=== PATIENT | female | born 1935 | race Hispanic/Latino ===

== ENCOUNTER 2017-09-01 08:23 | Emergency (ER) | payer MEDICARE, MEDICAID ==
[2017-09-01 10:59] LABS: #Basophils 0.1 thou/uL (0.0-0.2); #Eosinphils 0.1 thou/uL (0.0-0.7); #Lymphocytes 1.2 thou/uL (1.20-3.40); #Monocytes 0.4 thou/uL (0.11-0.59); #Neutrophils 3.5 thou/uL (1.40-6.50); %Basophils 1.4 % (0.0-1.0); %Lymphocytes 23.6 % (21.0-51.0); Hemoglobin 13.6 g/dL (12.0-16.0); Mean Corpuscular Volume 90.8 fl (81.0-99.0); Mean Platelet Volume 7.7 fL (7.4-10.4); Platelet Count 184 thou/uL (130-400); RBC Distribution Width 11.8 % (11.5-14.5); Red Blood Cell (RBC) Count 4.53 mill/uL (4.20-5.40); White Blood Cell (WBC) Count 5.2 thou/uL (4.8-10.8)
[2017-09-01 11:03] LABS: PTT 30.2 SEC (22.9-36.1); Prothrombin Time 13.3 SEC (12.0-14.7)
[2017-09-01 11:15] LABS: ALT (SGPT) 10 U/L (8-55); AST (SGOT) 17 U/L (5-34); Albumin 3.8 g/dL (3.4-4.8); Alkaline Phosphatase 73 U/L (40-150); Anion Gap 8 mmol/L (10-20); BUN (Urea Nitrogen) 15 mg/dL (9.8-20.1); Bilirubin, Total 0.4 mg/dL (0.2-1.2); Calc. Creatinine Clearance 0 mL/min (70-130); Calcium 10.2 mg/dL (7.8-10.44); Carbon Dioxide 29 mmol/L (23-31); Chloride 107 mmol/L (98-107); Estimated GFR-MDRD 71; Globulin 2.6 g/dL (2.4-3.5); Glucose 96 mg/dL (83-110); Potassium 4.3 mmol/L (3.5-5.1); Protein, Total 6.4 g/dL (6.0-8.3); Sodium 140 mmol/L (136-145)
[2017-09-01] MEDS ORDERED: Losartan 25 MG TAB PO SCH (12:00)
== END 2017-09-01 12:21 | disposition home or self-care (01) ==
LOC: ERS 08:23
DX: K05.10 Chronic gingivitis, plaque induced (principal); E78.5 Hyperlipidemia, unspecified; I10 Essential (primary) hypertension; K21.9 Gastro-esophageal reflux disease without esophagitis; F41.9 Anxiety disorder, unspecified; Z87.442 Personal history of urinary calculi
CPT/HCPCS: 36415; 80053; 85025; 85610; 85730; 99283

== ENCOUNTER 2018-04-15 13:59 | Observation (INO) | payer MEDICARE, MEDICAID ==
[~2018-04-15 13:59] MED LIST: ISOVUE-370 76%-LOCM 1 ML ONE
[2018-04-15 14:54] LABS: #Monocytes 1.1 thou/uL (0.11-0.59); #Neutrophils 12.9 thou/uL (1.40-6.50); %Basophils 0.2 % (0.0-1.0); %Eosinophils 0.3 % (0.0-10.0); %Lymphocytes 6.6 % (21.0-51.0); %Monocytes 7.2 % (0.0-10.0); %Neutrophils 85.8 % (42.0-75.0); Hemoglobin 13.6 g/dL (12.0-16.0); Mean Corpuscular Hemoglobin 28.4 pg (27.0-31.0); Mean Corpuscular Volume 88.8 fL (78.0-98.0); Mean Platelet Volume 7.6 fL (7.4-10.4); Platelet Count 250 thou/uL (130-400); RBC Distribution Width 11.7 % (11.5-14.5); Red Blood Cell (RBC) Count 4.78 mill/uL (4.20-5.40); White Blood Cell (WBC) Count 15.1 thou/uL (4.8-10.8)
[2018-04-15 14:57] LABS: Bilirubin Negative (Negative); Blood, Urine Moderate (Negative); Glucose, Urine (Dipstick) Negative (Negative); Leukocyte Negative (Negative); Nitrite Negative (Negative); Protein, Urine (Dipstick) Negative (Neg-Trace); Urobilinogen 0.2 mg/dL (0.2-1.0)
[2018-04-15 14:59] LABS: Clarity Clear (Clear)
[2018-04-15 15:03] LABS: Bacteria/HPF None Seen HPF (None Seen); Hyaline Casts/LPF 0-3 HYALINE CAST LPF (0-3 Hyaline); Pathc Cast-AUWi Flag 0.29 (0-2.49)
--- NOTE | 2018-04-15 15:06 | RAD ---
PORTABLE CHEST: Date: 04/15/18 HISTORY: Respiratory distress. COMPARISON: 09/20/13 study. FINDINGS: Heart size is slightly enlarged. There are atherosclerotic changes of the aorta. Calcific area just a simba the aortic arch is again demonstrated, which was noted on previous CT to be related to thyroid g land calcification. The lungs show chronic change. There are some slightly increased interstitial mar kings of the left costophrenic angle, which is suggestive of some atelectasis. IMPRESSION: Minimal cardiomegaly with chronic appearing lung changes. Interstitial changes along the left heart b order are subtly more prominent than the prior exam. Some of this may just be technique related, but could indicate some subsegmental atelectasis. POS: PORSHA
[2018-04-15 15:20] LABS: ALT (SGPT) 15 U/L (8-55); AST (SGOT) 20 U/L (5-34); Alkaline Phosphatase 64 U/L (40-150); Anion Gap 13 mmol/L (10-20); BUN (Urea Nitrogen) 10 mg/dL (9.8-20.1); Bilirubin, Total 0.8 mg/dL (0.2-1.2); CK (CPK) 63 U/L (29-168); Calc. Creatinine Clearance 0 mL/min (70-130); Calcium 10.3 mg/dL (7.8-10.44); Carbon Dioxide 21 mmol/L (23-31); Chloride 104 mmol/L (98-107); Estimated GFR-MDRD 62; Globulin 3.5 g/dL (2.4-3.5); Glucose 119 mg/dL (83-110); Potassium 3.5 mmol/L (3.5-5.1); Protein, Total 7.5 g/dL (6.0-8.3); Sodium 134 mmol/L (136-145)
[2018-04-15] MEDS ORDERED: cefTRIAXone\\ROCEPHIN 1 GM VIAL ONE (15:37)
[2018-04-15 15:40] LABS: Troponin I Less than 0.010 ng/mL (< 0.028)
[2018-04-15] MEDS ORDERED: Acetaminophen 500 MG TAB ONE (17:06)
[2018-04-15] MEDS ORDERED: Ondansetron ODT 4 MG TAB SL PRN (18:21)
[2018-04-15] MEDS ORDERED: Ondansetron HCl/PF 4 MG/2 ML Vial IVP PRN ×2 (18:21→20:07)
[2018-04-15 18:36] VITALS: BMI 23.6
[2018-04-15 18:49] LABS: Troponin I Less than 0.010 ng/mL (< 0.028)
--- NOTE | 2018-04-15 18:59 | HP ---
DATE OF ADMISSION: 04/15/2018 TIME OF SERVICE: 1800. PRIMARY CARE PHYSICIAN: Dr. Flynn at [facility]. CHIEF COMPLAINT: Hypoxia, fever, cough. HISTORY OF PRESENT ILLNESS: Ms. Givens is an 81-year-old female, Liberian speaking only, translation is provided through her family who presented to an outside Urgent Care Clinic at [facility] today. She has had a 2-week history of cold-like symptoms that started with her daughters and spread to her. She has had increasing fever and cough and today a fever to 101, so she prompted to go to the [facility] for evaluation. She is noted to have a temperature of 101.0 there, she was tachycardic and tachypneic. She was repor tedly 90% on room air on arrival there, was given a breathing treatment and sent to us. On arrival to the emergency department, she was reportedly 88% on room air. She had a chest x-ray th at was significant for some scarring along the left sternal border. She had a flu screen that was ne gative. White blood cell count was 15,000 with a normal differential and she is tachycardic with a s inus tachycardia at 115 with a temperature of 100.1. We were subsequently called for admission. She was given only 500 mL bolus which is approximately 10 mL per kilo and received a gram of Rocephin. On arrival to the floor, she is feeling okay. She denies any chest pain, nausea, vomiting, diarrhea, constipation. No hemoptysis. No colored sputum. She is having a cough productive of some clear ph legm. PAST MEDICAL HISTORY: 1. Hypertension. 2. DVT remotely. 3. Gastroesophageal reflux disease. 4. Osteoporosis. 5. Peripheral vascular disease, primarily venous insufficiency. 6. Hyperlipidemia. PAST SURGICAL HISTORY: Include; 1. Cholecystectomy 10-12 years ago. 2. Bilateral leg vein surgeries over the last several years. HOME MEDICATIONS: 1. Ambien 5 mg p.o. at bedtime. 2. Xarelto 50 mg p.o. b.i.d. 3. Atelvia 35 mg p.o. weekly. 4. Nifedipine 60 mg daily. 5. Nexium 40 mg daily. ALLERGIES: MORPHINE causes her to have sharp abdominal pains. FAMILY HISTORY: Significant for mother with coronary disease, but not premature. SOCIAL HISTORY: Negative for habits x3. She lives with family. REVIEW OF SYSTEMS: All systems reviewed and negative except as per HPI. PHYSICAL EXAMINATION: VITAL SIGNS: Temperature on arrival to the ER was 100.1, pulse 115, blood pressure 138/88, respirato ry rate 20, satting 80% on room air. She is currently 94%-96% on 2 liters. GENERAL: She is awake. She is alert. She is oriented x3. She is a well-developed, well-nourished female, appears to be in no acute distress. HEENT: Normocephalic, atraumatic. Pupils equal, round, reactive to light bilaterally. Mucous membr anes are moist. She had no visible lesion or thrush. Nasal cannula is in place. NECK: Supple. She has no lymphadenopathy, JVD, or thyromegaly. Good range of motion. Normal carot id upstrokes without bruits. LUNGS: Symmetrical air movement bilaterally. She has some expiratory high pitched wheezing present in the posterior right base. She has some crackles present in the right posterior lung field. Left side does sound clear. CARDIOVASCULAR: She is normal S1 and S2. She is slightly tachycardic in the 90s, but has no audible murmurs. ABDOMEN: Soft, is nontender, nondistended, no masses, no organomegaly. She had no rebound, rigidity or guarding. EXTREMITIES: Show no signs of clubbing, no edema. SKIN: Warm, moist, and well perfused. She has no rash, no lesions. MUSCULOSKELETAL: Normal to inspection. Large joints appear normal. There is no evidence of inflamm ation or palpable effusions. NEUROLOGIC: Cranial nerves II-XII are grossly intact. She has 5/5 strength in all 4 extremities, sh e has normal speech pattern, she has no focal deficits. LABORATORY DATA: Sodium 134, potassium 2.5, chloride 104, bicarb 21, BUN 10, creatinine 0.7, glucose 119, calcium 10.3. Liver function completely within normal limits. CBC showed a white count of 15.1, 85% percent granul ocytes, but no bands, no left shift, hemoglobin 13.6, hematocrit 42.4, platelet count is 250,000. BN P elevated at 115.3. CK-MB normal at 1.0, troponin I is undetectable less than 0.010. Lactic acid w as 1.8. Chest x-ray showed some atelectasis at the bases and some scarring at the left heart border. ASSESSMENT AND PLAN: 1. Possible community-acquired pneumonia. She has crackles present in the right base and some expir atory wheezes. She got Rocephin in the ER. We will continue on doxycycline also. We will likely tr ansition to oral Levaquin in the morning. 2. Sepsis. She has elevated temperature, elevated heart rate, elevated white blood cell count, pres umed bacterial infection and is tachypneic. She does meet sepsis criteria. She was not adequately f luid resuscitated. We will give another liter to give a total of 30 mL per kilo bolus and will subse quently continue at 75 mL an hour normal saline. 3. Recent viral upper respiratory infection by history. She had a negative flu panel in the emergen cy department. 4. Hypertension, essential. We will continue her nifedipine. 5. Gastroesophageal reflux disease. Continue Nexium. 6. History of deep venous thrombosis on Xarelto, which we will continue. 7. History of osteoporosis. She is on Atelvia which we will hold at present. 8. History of peripheral vascular disease. 9. History of hyperlipidemia. The patient will be in observation status overnight. We will reassess in the morning.
[2018-04-15] MEDS ORDERED: Acetaminophen 325 MG TAB PO PRN (20:07)
[2018-04-15] MEDS ORDERED: Acetaminophen 650 MG Suppository PR PRN (20:07)
[2018-04-15] MEDS ORDERED: Ondansetron ODT 4 MG TAB PO PRN (20:07)
--- NOTE | 2018-04-15 20:12 | CT ---
CT ANGIO OF CHEST PERFORMED WITH INTRAVENOUS CONTRAST ENHANCEMENT WITH 3D RECONSTRUCTIONS: 04/15/18 HISTORY: Hypoxia, dyspnea, productive cough. There is a 6 mm left upper lobe pulmonary nodule incidentally noted. This should be worked up based o n risk factors. There is a calcified granuloma in the in the left base. There are chronic lung change s seen. there is atelectatic changes in the right lower lobe and more prominent atelectasis or some early developing infiltrate of the left lower lobe. There is no significant periaortic, mediastinal o r hilar adenopathy. The thoracic aorta is normal in caliber. There is good pulmonary artery opacification obtained in two of the more subsegmental branches. I do not see any evidence for pulmonary embolus. Tiny left pleural effusion is seen. Hypodensity within the liver is compatible with a cyst. Right and left adrenal glands are normal. Other hypodensities within the liver also appear to represe nt cysts. IMPRESSION: 1. No CT evidence for pulmonary embolus. 2. Bibasilar parenchymal lung changes probably related to atelectasis, although changes in the l eft base are more confluent and could represent early infiltrate. 3. Hepatic cyst. POS: Scooby
[2018-04-15] MEDS: Rivaroxaban 15 MG TAB PO SCH (20:27)
[2018-04-15] MEDS: Doxycycline 100 MG CAP PO SCH (20:27)
[2018-04-15] MEDS ORDERED: Zolpidem Tartrate 5 MG TAB PO SCH (21:00)
[2018-04-16 06:05] LABS: Hemoglobin 12.6 g/dL (12.0-16.0); Platelet Count 221 thou/uL (130-400)
[2018-04-16] MEDS: Rivaroxaban 15 MG TAB PO SCH (08:26)
[2018-04-16] MEDS: Doxycycline 100 MG CAP PO SCH (08:26)
[2018-04-16] MEDS ORDERED: NIFEdipine XL 60 MG TAB PO SCH (09:00)
[2018-04-16 10:07] LABS: #Basophils 0.1 thou/uL (0.0-0.2); #Eosinphils 0.1 thou/uL (0.0-0.7); #Lymphocytes 1.1 thou/uL (1.20-3.40); #Monocytes 0.8 thou/uL (0.11-0.59); #Neutrophils 9.9 thou/uL (1.40-6.50); %Basophils 0.4 % (0.0-1.0); %Lymphocytes 9.2 % (21.0-51.0); %Monocytes 6.3 % (0.0-10.0); %Neutrophils 83.1 % (42.0-75.0); Hemoglobin 12.6 g/dL (12.0-16.0); Mean Corpuscular HGB CONC 32.1 g/dL (32.0-36.0); Mean Corpuscular Hemoglobin 28.1 pg (27.0-31.0); Mean Corpuscular Volume 87.6 fL (78.0-98.0); Mean Platelet Volume 8.1 fL (7.4-10.4); Platelet Count 208 thou/uL (130-400); RBC Distribution Width 11.7 % (11.5-14.5); Red Blood Cell (RBC) Count 4.49 mill/uL (4.20-5.40)
[2018-04-16] MEDS ORDERED: guaiFENesin ER 600 MG TAB PO SCH ×2 (10:30→21:00)
[2018-04-16 12:08] VITALS: TEMP 98.8
--- NOTE | 2018-04-16 12:27 | RAD ---
CHEST TWO VIEWS: 04/16/2018 HISTORY: Hypoxia. Dyspnea. COMPARISON: 04/15/2018 FINDINGS: Two views of the chest demonstrate EKG leads seen over the chest. Some blunting of the left costophr enic angle is seen, compatible with a tiny left-sided pleural effusion or pleural scar. No significa nt evidence of pneumothorax is seen. No definite evidence of pneumonia is seen. Osteoporosis of the thoracic spine is seen. IMPRESSION: Small left-sided pleural effusion. POS: [facility]
--- NOTE | 2018-04-16 15:46 | DIS ---
DATE OF ADMISSION: 04/15/2018 DATE OF DISCHARGE: 04/16/2018 PRIMARY CARE PHYSICIAN: Ovi Flynn M.D. DISCHARGE DIAGNOSES: 1. Acute bacterial bronchitis. 2. Recent viral upper respiratory infection. 3. Acute hypoxemic respiratory failure. 4. Sepsis, present on admission, resolved. 5. History of supraventricular tachycardia, superficial thrombosis of the leg. 6. Venous insufficiency. 7. Hypertension. 8. Hyperlipidemia. 9. Osteoporosis. 10. Gastroesophageal reflux disease. CONSULTATIONS: None. PROCEDURES: None. HISTORY AND PHYSICAL: Ms. Givens is an 82-year-old female, who presented to the emergency departm ent in transfer from an urgent care facility. She presented to Urgent Care with a fever that has bee n going on for 1 day after a 10-day history of viral upper respiratory symptoms. She had a cough josé luis t was productive of only clear sputum and a fever of 101, so went to Urgent Care, she was transferred here. While here, she met sepsis criteria with tachycardia, tachypnea, hypoxemia, elevated white count, and fever of 101. We were called for admission. HOSPITAL COURSE: The patient was seen and examined by me on arrival to the floor. She was placed on observation status, started on broad-spectrum antibiotics, she was given some nebulizer treatments f or some wheezing and given fluids on the sepsis protocol. Overnight, 04/15-04/16, she was eating well, she was weaned off oxygen quickly. Her lungs, this morn ing, were clear. Repeat two-view chest x-ray was unremarkable. She tolerated the antibiotics and wa s transitioned to Levaquin and white count was improved. She was stable for discharge with outpatien t followup. PHYSICAL EXAMINATION: The patient was seen and examined on the day of discharge. Discharge plan and disposition were discussed with the patient and 7 daughters at the bedside. DISCHARGE MEDICATIONS: New prescriptions, levofloxacin 500 mg daily for 7 days. Medications to continue. 1. Nexium 40 mg p.o. daily. 2. Nifedipine 60 mg p.o. daily. 3. Xarelto 50 mg p.o. b.i.d. 4. Ambien 5 mg p.o. at bedtime. 5. Albuterol sulfate HFA q.4 hours p.r.n. 6. Vitamin D3 1000 units daily. 7. Diclofenac 2 grams topically q.i.d. 8. Losartan/HCTZ 50/12.5 one tablet daily. 9. Mirtazapine 15 mg p.o. at bedtime. 9. Atelvia 35 mg p.o. q. week on Saturdays. 10. Tramadol 50 mg p.o. t.i.d. p.r.n. pain. FOLLOWUP APPOINTMENT: With Dr. Flynn within a week. DISCHARGE CONDITION: Stable. DISPOSITION: Being discharged home via private vehicle. DISCHARGE ACTIVITY: Per cardiopulmonary limits. DISCHARGE DIET: Heart healthy diet recommended.
[2018-04-16 15:56] VITALS: BP 132/62
== END 2018-04-16 16:31 | disposition home or self-care (01) ==
LOC: ERS 13:59 → 2SW 16:53
PROVIDERS: ADMIT Internal Medicine Infectious Disease; ATTEND Internal Medicine Infectious Disease
DX: A41.9 Sepsis, unspecified organism (principal); J20.8 Acute bronchitis due to other specified organisms; J96.01 Acute respiratory failure with hypoxia; I10 Essential (primary) hypertension; K21.9 Gastro-esophageal reflux disease without esophagitis; M81.0 Age-related osteoporosis without current pathological fracture; E78.5 Hyperlipidemia, unspecified; I73.9 Peripheral vascular disease, unspecified; Z86.718 Personal history of other venous thrombosis and embolism; Z79.01 Long term (current) use of anticoagulants; Z79.83 Long term (current) use of bisphosphonates; Z79.899 Other long term (current) drug therapy; Z88.5 Allergy status to narcotic agent
CPT/HCPCS: 71045; 71046; 71275; 80053; 82550; 82553; 82565; 83605; 83880; 84484 ×2; 85014; 85018; 85025 ×2; 85049; 87040; 87086; 87804 ×2; 93005; 96365; 97139; 99285; G0378 ×2; 36415; 81003; 81015; 96361; A4216; J0696

== ENCOUNTER 2018-06-04 20:24 | Inpatient (IN) | payer MEDICARE, MEDICAID ==
[2018-06-04 21:03] LABS: Bilirubin Negative (Negative); Blood, Urine Large (Negative); Clarity CLEAR (Clear); Glucose, Urine (Dipstick) Negative (Negative); Leukocyte Small (Negative); Nitrite Negative (Negative); Protein, Urine (Dipstick) Negative (Neg-Trace); Urobilinogen 0.2 mg/dL (0.2-1.0)
[2018-06-04 21:05] LABS: Pathc Cast-AUWi Flag 0.14 (0-2.49)
[2018-06-04 21:07] LABS: Specific Gravity, Urine 1.001 (1.002-1.036)
[2018-06-04 21:12] LABS: #Basophils 0.1 thou/uL (0.0-0.2); #Eosinphils 0.2 thou/uL (0.0-0.7); #Lymphocytes 1.5 thou/uL (1.20-3.40); #Monocytes 0.5 thou/uL (0.11-0.59); #Neutrophils 3.6 thou/uL (1.40-6.50); %Eosinophils 3.4 % (0.0-10.0); %Lymphocytes 25.2 % (21.0-51.0); %Monocytes 8.4 % (0.0-10.0); %Neutrophils 62.1 % (42.0-75.0); Mean Corpuscular HGB CONC 32.7 g/dL (32.0-36.0); Mean Corpuscular Volume 88.9 fL (78.0-98.0); Mean Platelet Volume 7.6 fL (7.4-10.4); Platelet Count 198 thou/uL (130-400); RBC Distribution Width 12.4 % (11.5-14.5); Red Blood Cell (RBC) Count 4.81 mill/uL (4.20-5.40); White Blood Cell (WBC) Count 5.8 thou/uL (4.8-10.8)
[2018-06-04 21:13] LABS: Bacteria/HPF Rare-Few HPF (None Seen); Hyaline Casts/LPF 0-3 HYALINE CAST LPF (0-3 Hyaline); Squamous Epithelial 0-3 HPF (0-3)
[2018-06-04] MEDS ORDERED: Fentanyl 100 MCG/2 ML VIAL ONE (21:32)
[2018-06-04 21:35] LABS: ALT (SGPT) 17 U/L (8-55); AST (SGOT) 21 U/L (5-34); Albumin 4.2 g/dL (3.4-4.8); Alkaline Phosphatase 75 U/L (40-150); Anion Gap 11 mmol/L (10-20); BUN (Urea Nitrogen) 13 mg/dL (9.8-20.1); Bilirubin, Total 0.3 mg/dL (0.2-1.2); Calc. Creatinine Clearance 0 mL/min (70-130); Calcium 10.4 mg/dL (7.8-10.44); Carbon Dioxide 25 mmol/L (23-31); Chloride 109 mmol/L (98-107); Estimated GFR-MDRD 64; Globulin 3.2 g/dL (2.4-3.5); Glucose 111 mg/dL (83-110); Potassium 3.6 mmol/L (3.5-5.1); Protein, Total 7.4 g/dL (6.0-8.3); Sodium 141 mmol/L (136-145)
--- NOTE | 2018-06-04 22:33 | CT ---
ABDOMEN AND PELVIC CT SCAN WITH IV CONTRAST 06/04/18 HISTORY: Dysuria. Burning back pain, left side. History of kidney stones. COMPARISON: 09/20/13. The lung bases are clear. Multiple liver cysts. Status post cholecystectomy with some dilatation of the common bile duct up to approximately 1.4 cm. The pancreas, spleen, and adrenal glands are unremar kable. Small nonobstructing bilateral renal calculi. Dilatation of the left upper renal collecting sy stem and left ureter down to an obstructing calculus measuring approximately 0.5 x 0.7 cm near the ur eterovesicular junction. No evidence for overt bowel obstruction, abscess, adenopathy, or abnormal fl uid collection. IMPRESSION: Obstructing distal left ureteral calculus. Multiple liver cysts and multiple renal cysts. Nonobstruct ing bilateral renal calculi. POS: PORSHA
[2018-06-04] MEDS ORDERED: cefTRIAXone\\ROCEPHIN 2 GM VIAL ONE (23:39)
[2018-06-05] MEDS ORDERED: Fentanyl 100 MCG/2 ML VIAL SLOW IVP PRN (02:11)
[2018-06-05] MEDS ORDERED: Acetaminophen 325 MG TAB PO PRN ×2 (02:12→06:52)
[2018-06-05] MEDS ORDERED: HYDROcodone/Acetaminophen 5/325 mg Tablet PO PRN ×2 (02:12)
[2018-06-05] MEDS ORDERED: Ondansetron PF 4 MG/2 ML Vial IVP PRN ×2 (02:12→06:52)
[2018-06-05] MEDS ORDERED: Ondansetron ODT 4 MG TAB SL PRN (02:12)
[2018-06-05] MEDS ORDERED: Sodium Chloride 0.45% 1,000 ML IV SCH (02:15)
[2018-06-05] MEDS ORDERED: Zolpidem Tartrate 5 MG TAB PO PRN (02:55)
[2018-06-05 03:07] VITALS: BMI 21.9
[2018-06-05] MEDS ORDERED: Diabetic Tussin 200 MG/10 ML UDCUP PO PRN (06:52)
[2018-06-05] MEDS ORDERED: Loratadine 10 MG TAB PO PRN (06:52)
[2018-06-05] MEDS ORDERED: Eucerin (Mineral Oil/Petrolatum,White) 30 gm Jar TOP PRN (06:52)
[2018-06-05] MEDS ORDERED: Ketorolac Tromethamine 30 MG/ML VIAL IVP PRN (06:52)
[2018-06-05] MEDS ORDERED: hydrALAZINE 20 MG/ML VIAL SLOW IVP PRN (06:52)
[2018-06-05] MEDS ORDERED: Bisacodyl 10 MG SUPP PR PRN (06:52)
[2018-06-05] MEDS ORDERED: Sodium Chloride 0.65% Nasal 44 ML BOT EA NARE PRN (06:52)
[2018-06-05] MEDS ORDERED: Loperamide HCl 2 MG CAP PO PRN (06:52)
[2018-06-05] MEDS ORDERED: Artificial Tear Sol 15 ML BOT EA EYE PRN (06:52)
[2018-06-05] MEDS ORDERED: Bisacodyl 5 MG TAB PO PRN (06:52)
[2018-06-05] MEDS ORDERED: Senokot S 8.6-50 MG TAB PO PRN (06:52)
[2018-06-05] MEDS ORDERED: Ondansetron ODT 4 MG TAB PO PRN (06:52)
[2018-06-05] MEDS ORDERED: PROVENTIL INHALER 6.7 G (200 INHALATIONS) INH PRN (06:54)
[2018-06-05] MEDS ORDERED: Diclofenac Sodium [Diclofenac Sodium 1% Gel] 2 GM TOP PRN (08:00)
[2018-06-05] MEDS: Sodium Chloride 0.9% 1,000 ML IV SCH ×2 (08:21→17:04)
[2018-06-05] MEDS: Fentanyl 100 MCG/2 ML VIAL SLOW IVP PRN ×2 (08:24→22:19)
[2018-06-05] MEDS: Famotidine 20 MG TAB PO SCH (08:38)
[2018-06-05] MEDS: NIFEdipine XL 60 MG TAB PO SCH (08:38)
[2018-06-05] MEDS: Saccharomyces boulardii 250 MG CAP PO SCH (08:39)
[2018-06-05] MEDS ORDERED: Tamsulosin HCl 0.4 MG CAP PO SCH (09:00)
--- NOTE | 2018-06-05 10:30 | HP ---
PRIMARY CARE PHYSICIAN: Dr. Ovi Flynn. REASON FOR ADMISSION: Urinary tract infection, left ureteral calculus. HISTORY OF PRESENT ILLNESS: An 83-year-old female who has underlying history of nephrolithiasis who was experiencing dysuria for last 2-3 weeks. Initially, patient was visited by primary care bharath n and patient was given antibiotic therapy. The patient did not have any clinical improvement with t hat antibiotic therapy. The patient is not able to tell me the name of first antibiotics, so she vis ited again primary care physician a few days ago. At that point, the patient was given ciprofloxacin . The patient did not have any fever or chills but patient day before yesterday she had hematuria which cleared up yesterday, but patient started having yesterday evening severe left flank pain associated with mild nausea. Pain was unbearable and it was not controlled with local measures at home and josé luis t is why family member brought her to the emergency room for evaluation. In the emergency room, patient had CT stone protocol which showed obstructing distal left ureteral ca lculus and patient was also found with bilateral nonobstructive renal calculi. Urology was notified from emergency room and subsequently patient was admitted under Medicine Team. Patient is Setswana sp eaking only. Patient's daughter is present at bedside who provided most of the history and she helpe d to interpret. PAST MEDICAL HISTORY: Hypertension, history of DVT in past, gastroesophageal reflux disease, osteopo rosis, peripheral vascular disease, dyslipidemia, nephrolithiasis. PAST SURGICAL HISTORY: Cholecystectomy, bilateral leg vein surgery. In 2013, patient had a cystosco py and basket extraction of left ureteral calculi, hysterectomy. PAST PSYCHIATRIC HISTORY: Anxiety and depression. SOCIAL HISTORY: Patient lives at home with the family. No history of tobacco, alcohol or illicit dr ug abuse. FAMILY HISTORY: Coronary artery disease to the patient's mother. REVIEW OF SYSTEMS: The following complete review of systems was negative, unless otherwise mentioned in the HPI or below: Constitutional: Weight loss or gain, ability to conduct usual activities. Skin: Rash, itching. Eyes: Double vision, pain. ENT/Mouth: Nose bleeding, neck stiffness, pain, tenderness. Cardiovascular: Palpitations, dyspnea on exertion, orthopnea. Respiratory: Shortness of breath, wheezing, cough, hemoptysis, fever or night sweats. Gastrointestinal: Poor appetite, abdominal pain, heartburn, nausea, vomiting, constipation, or diarr hea. Genitourinary: Urgency, frequency, dysuria, nocturia. Musculoskeletal: Pain, swelling. Neurologic/Psychiatric: Anxiety, depression. Allergy/Immunologic: Skin rash, bleeding tendency. Please see my HPI for pertinent positive and negative. All other review of systems reviewed and nega tive except as mentioned in the HPI. ALLERGIES: MORPHINE and PENICILLIN. CURRENT HOME MEDICATIONS: ProAir HFA 2 puffs q.6 hourly p.r.n., Cipro 250 mg p.o. b.i.d., vitamin D3 1000 unit p.o. daily, clotrimazole as directed, diclofenac topical as directed, Nexium 40 mg daily, losartan with hydrochlorothiazide 50/12.5 one tablet daily, Remeron 15 mg p.o. at bedtime, Procardia 60 mg daily, risedronate 35 mg every week, tramadol 50 mg t.i.d. p.r.n., Ambien 5 mg p.o. at bedtime p.r.n. EMERGENCY ROOM COURSE: The patient is given Rocephin 2 gram, fentanyl 50 microgram and IV fluid [address] PHYSICAL EXAMINATION: VITAL SIGNS: On arrival, blood pressure 184/78, pulse 88, respiratory rate 18, temperature 97.7, sat uration 98% on room air, weight 52.6 kilograms. GENERAL: Patient is currently alert, awake, no obvious acute distress. HEAD: Normocephalic, atraumatic. EYES: Pupils round, reactive to light. Extraocular muscle intact. ENT: Oropharynx within normal limits. Moist mucous membranes, no oral lesion, no pharyngeal erythem a, no exudate. NECK: Supple, no JVD, no thyromegaly, no carotid bruit, no jugular venous distention. LUNGS: Clear to auscultation without any rhonchi or rales. CARDIAC: S1 and S2 regular without any murmur. ABDOMEN: Soft, bowel sounds present, nontender, nondistended. No organomegaly, no mass, no suprapub ic tenderness. The patient does have left-sided costovertebral angle tenderness. BACK: She has left-sided costovertebral angle tenderness. EXTREMITIES: Upper extremity passive movements of all joints are normal. Lower extremities: No karen ma. Good distal pulsation. SKIN: No skin rash. HEMATOLOGIC: No lymphadenopathy. NEUROLOGIC: Nonfocal examination. The patient moves all 4 limbs. Plantar bilateral flexor. PSYCHIATRIC: Normal affect. IMAGING DATA AND SIGNIFICANT LABORATORY DATA: CT of the abdomen and pelvis stone protocol showing ob structing distal left ureteral calculus, multiple liver and renal cyst, nonobstructive bilateral benita l calculi. CBC: WBC 5.8, hemoglobin 14.0, platelets 198. BMP: Sodium 141, potassium 3.6, chloride 109, carbon dioxide 25, BUN 13, creatinine 0.85, glucose 111, calcium 10.4. LFT: AST 21, ALT 17, a lkaline phosphatase is 75, albumin 4.2. Urinalysis suggestive of UTI. ASSESSMENT AND PLAN/IMPRESSION: 1. Complicated urinary tract infection in presence of obstruction of left ureter secondary to calcul i. 2. Acute flank pain due to obstructing distal left ureteral calculus. 3. Bilateral nonobstructive renal calculi. 4. Hypertension, controlled. 5. Osteoporosis. 6. Gastroesophageal reflux disease. 7. Anxiety and depression. PLAN: Admission to medical floor, start Levaquin 500 mg IV daily. Continue IV fluid NS at 75 mL per hour. Also add Rocephin 1 gram q.24 hours. Urology is consulted and patient may need cystoscopy an d stent placement. We have resumed all her home medications. Her pain will be controlled with Torad ol and fentanyl as needed basis. We will follow up on culture result and we will repeat labs tomorro w. Deep venous thrombosis prophylaxis, SCD boots. Gastrointestinal prophylaxis, Pepcid 20 mg p.o. d aily. CODE STATUS: Patient is FULL CODE. Patient's daughter is surrogate decision maker. Disposition plan based on clinical course.
[2018-06-05] MEDS: cefTRIAXone\\ROCEPHIN 1 GM in Sodium Chloride 0.9% 100 ML IVPB SCH (11:29)
--- NOTE | 2018-06-05 11:47 | PDOC.EVN ---
Event Note - Event Note Event Note: spoke with urology, she will need procedure under general anesthesia to remove stone, so will do pre operative work up and change to inpt status. will monitor in hospital
--- NOTE | 2018-06-05 12:25 | CON ---
DATE OF CONSULTATION: 06/05/2018 REASON FOR CONSULTATION: Left ureteral stone and concern for prior UTI. HISTORY OF PRESENT ILLNESS: Patient is an 83-year-old female who for the past month or so has had some frequency, urgency, burning irritation and been treated as a UTI with Levaquin and then Cipro as an outpatient. She had chills , but no fever, nausea, but no vomiting and persistent left flank pain which is actually what brought her in. Normally, she has frequency q.4 hours during the day and nocturia x3. She has had some gross hematuria noted just in the past month. She has not had this before. She has had trouble with UTIs in the past. She has no leakage of urine and she does have a history of stones that she passed years and years ago. She does not recall how many or when and she did not require surgery for stones in the past. PAST MEDICAL HISTORY: Hyperlipidemia, hypertension, GERD, heart murmur, kidney stones. PAST SURGICAL HISTORY: Includes gallbladder and right lower extremity vascular procedure in 2017. PAST OBSTETRICS HISTORY: She had 17 pregnancies and 13 vaginal deliveries. She still has her uterus and ovaries, although there is a record of a report of hysterectomy. The daughter and the patient deny this. MEDICATIONS: Include albuterol, losartan/hydrochlorothiazide 50/12.5, mirtazapine, nifedipine, tramadol, zolpidem, Mycelex and antibiotics. ALLERGIES: MORPHINE and PENICILLIN. REVIEW OF SYSTEMS: Reveals in March of this month, she was admitted for bronchitis, upper respiratory failure and concern for sepsis. Her breathing has improved significantly since then. She has no shortness of breath. She is not coughing up anything. She has no chest pain. She does have diarrhea or loose stools for the past month or so, which is new. She has never had a colonoscopy. She denies any constipation. She has had mammograms and Pap smears in the remote past that were normal, but nothing recently. She has had concerns for lower extremity edema off and on in the past month or so or even longer. SOCIAL HISTORY: She smoked about a pack a week for maybe 20 years, but quit 20 years ago. She does not drink alcohol or use other drugs. FAMILY HISTORY: Mother at 71 with lung problems related to scoliosis. Father at 40 of gallbladder issues, no cancers. PHYSICAL EXAMINATION: GENERAL: She is comfortable in the bed and alert and appropriate. VITAL SIGNS: Temperature 98.3, blood pressure 160/79, heart rate 62, 99% on room air. Urine output is not listed at this time. CARDIOVASCULAR: Regular rate and rhythm with no obvious murmurs, gallops or rubs. RESPIRATORY: Lungs are clear to auscultation bilaterally. ABDOMEN: Soft, nondistended, mild left lower quadrant tenderness, some left costovertebral angle tenderness, none on the right. EXTREMITIES: No lower extremity edema. HEENT: No scleral icterus. No diaphoresis, no flushing. NECK: No JVD. LABORATORY DATA: CBC is normal. BUN and creatinine are normal with a creatinine of 0.85. Urinalysis revealed 7-10 wbc's, 11-20 RBCs, rare bacteria and 0-3 squamous cells. Her urinalysis from 03/2018 showed 4-6 wbc's, 11-20 RBCs, no bacteria and 4-6 squamous cells. She had too numerous to count RBCs back in [address] scan from 06/05/2018 with contrast was reviewed personally reveals a left renal nelson, a right upper pole stone 6 x 3 mm, and a left 5 x 7 UVJ stone with hydronephrosis, bilateral cysts and normal bladder and the distal stone is likely seen on loft patternmaker. ASSESSMENT AND PLAN: We have an 83-year-old female with obstructing left ureteral stone with no obvious evidence of urinary tract infection, but renal colic. Her creatinine is good. So at this time, there is no need for an urgent stent, but certainly I think she is unlikely to pass, so should have something done before she is discharged and in that case, I would like to get her cardiac status approved before taken to surgery for ureteroscopy and if I can get the holmium laser for tomorrow, then we will plan on this accordingly. NABEEL
[2018-06-05 12:28] LABS: CKMB 2.1 ng/mL (0-6.6); Troponin I Less than 0.010 ng/mL (< 0.028)
--- NOTE | 2018-06-05 12:59 | RAD ---
CHEST 2 VIEWS: Date: 06/05/18 HISTORY: Preop. COMPARISON: Radiograph dated 04/16/18. FINDINGS: Chronic blunting left lateral costophrenic sulcus. Granuloma right mid lung. Old scarring right lung base. There is a calcified what appears to be a lymph node versus thyroid nodule along the left side of the superior mediastinum, unchanged. IMPRESSION: Chronic changes. No acute intrathoracic abnormality. POS: [facility]
[2018-06-05] MEDS: Mirtazapine 15 MG TAB PO SCH (20:03)
[2018-06-05] MEDS: Zolpidem Tartrate 5 MG TAB PO PRN (20:03)
[2018-06-05] MEDS: traMADol HCl 50 MG TAB PO PRN (20:06)
--- NOTE | 2018-06-05 23:19 | CON ---
DATE OF CONSULT: 06/05/18 HISTORY OF PRESENT: Patient is an 83-year-old woman who presents with a ureteral stone. The patient has no known cardiac history. The patient has a history of hypertension. The patient denies any ch est discomfort or dyspnea on exertion. The patient presented with a urinary stone and needs to under go surgery. PAST MEDICAL HISTORY: Significant for, 1. Hypertension. 2. History of deep venous thrombosis. 3. Venous insufficiency. 4. Dyslipidemia. PAST SURGICAL HISTORY: She had a cholecystectomy, hysterectomy, vein surgery. SOCIAL HISTORY: Nonsmoker. FAMILY HISTORY: Positive family history of coronary artery disease. REVIEW OF SYSTEMS: Ten-point system otherwise unremarkable: ALLERGIES: She is allergic to MORPHINE and PENICILLIN. PHYSICAL EXAMINATION: GENERAL: Elderly woman in no acute distress. VITAL SIGNS: Blood pressure was 123/70. NECK: No jugular distention, no carotid bruits. LUNGS: Clear to auscultation. HEART: Regular rate and rhythm, normal S1, S2, no murmurs. ABDOMEN: Nondistended. EXTREMITIES: No edema. VASCULAR: Radial pulses 2+. LABORATORY DATA: White blood cell count 5.8, hemoglobin 14.0, hematocrit 42.8, platelets 198. Sodiu m 141, potassium 3.6, chloride 109, bicarbonate 25, BUN 13, creatinine 0.85, glucose 111, troponin le ss than 0.01. BNP was 97. EKG revealed normal sinus rhythm with a right bundle branch block, minima l voltage criteria for LVH. IMPRESSION: 1. Urinary obstruction secondary calculi. 2. Hypertension. 3. History of DVT. This patient presents with need to undergo urologic surgery. From a cardiac standpoint, she appears to be at acceptable risk for proceeding with surgery. We will follow this patient with you through h er hospitalization.
[2018-06-06 04:12] LABS: #Lymphocytes 0.9 thou/uL (1.20-3.40); #Monocytes 0.6 thou/uL (0.11-0.59); #Neutrophils 6.2 thou/uL (1.40-6.50); %Basophils 0.4 % (0.0-1.0); %Eosinophils 0.4 % (0.0-10.0); %Lymphocytes 11.9 % (21.0-51.0); %Monocytes 7.1 % (0.0-10.0); %Neutrophils 80.1 % (42.0-75.0); Hemoglobin 12.4 g/dL (12.0-16.0); Mean Corpuscular HGB CONC 32.6 g/dL (32.0-36.0); Mean Corpuscular Hemoglobin 28.8 pg (27.0-31.0); Mean Corpuscular Volume 88.4 fL (78.0-98.0); Mean Platelet Volume 7.7 fL (7.4-10.4); Platelet Count 195 thou/uL (130-400); RBC Distribution Width 12.2 % (11.5-14.5); Red Blood Cell (RBC) Count 4.32 mill/uL (4.20-5.40); White Blood Cell (WBC) Count 7.7 thou/uL (4.8-10.8)
[2018-06-06 04:32] LABS: Anion Gap 9 mmol/L (10-20); BUN (Urea Nitrogen) 13 mg/dL (9.8-20.1); Calc. Creatinine Clearance 41 mL/min (70-130); Calcium 9.6 mg/dL (7.8-10.44); Carbon Dioxide 26 mmol/L (23-31); Chloride 104 mmol/L (98-107); Estimated GFR-MDRD 65; Glucose 113 mg/dL (83-110); Potassium 3.9 mmol/L (3.5-5.1); Sodium 135 mmol/L (136-145)
[2018-06-06] MEDS: Sodium Chloride 0.9% 1,000 ML IV SCH ×2 (05:39→23:15)
[2018-06-06] MEDS ORDERED: Fentanyl 100 MCG/2 ML VIAL ONE (07:10)
[2018-06-06] MEDS ORDERED: Iothalamate Meglumine 60% 50 ML VIAL FS ONE (07:31)
[2018-06-06] MEDS ORDERED: Promethazine HCl 25 MG/ML VIAL IM PRN (09:01)
[2018-06-06] MEDS ORDERED: Ondansetron HCl/PF 4 MG/2 ML Vial IVP PRN (09:01)
[2018-06-06] MEDS ORDERED: Promethazine HCl 25 MG/ML VIAL SLOW IVP PRN (09:01)
[2018-06-06] MEDS ORDERED: PHENYLEPHRINE-NS 100 MCG/ML 10 ML SYRINGE ONE (09:51)
[2018-06-06] MEDS ORDERED: ePHEDrine/0.9% NaCl/PF SYRINGE 50 mg/10 ml ONE (09:51)
[2018-06-06] MEDS ORDERED: PROPOFOL 200 MG/20 ML VIAL ONE (09:51)
[2018-06-06] MEDS ORDERED: Ondansetron PF 4 MG/2 ML Vial ONE (09:51)
[2018-06-06] MEDS ORDERED: Dexamethasone 20 MG/5 ML VIAL ONE (09:51)
[2018-06-06] MEDS ORDERED: Lidocaine 1% PF 5 ML VIAL ONE (09:51)
--- NOTE | 2018-06-06 10:34 | PDOC.PN ---
- Subjective Encounter Start Date: 06/06/18 Encounter Start Time: 09:00 Patient seen and examined. No new complaints. No overnight events - Objective Resuscitation Status: Resuscitation Status FULL:Full Resuscitation MAR Reviewed: Yes Vital Signs & Weight: Vital Signs (12 hours) Temp Pulse Resp BP Pulse Ox 06/06/18 09:35 97.6 F 85 18 177/79 H 97 06/06/18 08:00 98 06/06/18 05:41 98 06/06/18 05:00 98.2 F 77 17 131/71 98 06/06/18 00:00 18 Weight Weight 112 lb 7 oz I&O: 06/05/18 06/06/18 06/07/18 06:59 06:59 06:59 Intake Total 2843 Balance 2843 Result Diagrams: 06/06/18 03:14 06/06/18 03:14 Radiology Reviewed by me: Yes (chest xray reviewed) EKG Reviewed by me: Yes (EKG) Phys Exam - Physical Examination Constitutional: NAD HEENT: PERRLA, moist MMs, sclera anicteric Neck: no JVD, supple Respiratory: no wheezing, no rales, no rhonchi Cardiovascular: RRR, no significant murmur, no rub Gastrointestinal: soft, non-tender, no distention, positive bowel sounds Musculoskeletal: no edema, pulses present Neurological: non-focal, normal sensation, moves all 4 limbs Psychiatric: normal affect, A&O x 3 Skin: no rash, normal turgor Dx/Plan (1) Left ureteral calculus Code(s): N20.1 - CALCULUS OF URETER Status: Acute Comment: s/p cysto and stone removal (2) UTI (urinary tract infection) Status: Acute (3) Anxiety and depression Code(s): F41.9 - ANXIETY DISORDER, UNSPECIFIED; F32.9 - MAJOR DEPRESSIVE DISORDER, SINGLE EPISODE, UNSPECIFIED Status: Chronic (4) GERD (gastroesophageal reflux disease) Code(s): K21.9 - GASTRO-ESOPHAGEAL REFLUX DISEASE WITHOUT ESOPHAGITIS Status: Chronic (5) Hyperlipidemia Code(s): E78.5 - HYPERLIPIDEMIA, UNSPECIFIED Status: Chronic (6) Hypertension Code(s): I10 - ESSENTIAL (PRIMARY) HYPERTENSION Status: Chronic (7) Osteoporosis Code(s): M81.0 - AGE-RELATED OSTEOPOROSIS W/O CURRENT PATHOLOGICAL FRACTURE Status: Chronic (8) Peripheral vascular disease of extremity Code(s): I73.9 - PERIPHERAL VASCULAR DISEASE, UNSPECIFIED Status: Chronic - Plan cont current plan of care, continue antibiotics * medication reviewed as below * symptomatic treatment. * s/p cysto and stone removal * monitor today and follow culture result Review of Systems - Review of Systems ENT: negative: Ear Pain, Ear Discharge, Nose Pain, Nose Discharge, Nose Congestion, Mouth Pain, Mouth Swelling, Throat Pain, Throat Swelling, Other Respiratory: negative: Cough, Dry, Shortness of Breath, Hemoptysis, SOB with Excertion, Pleuritic Pain, Sputum, Wheezing Cardiovascular: negative: chest pain, palpitations, orthopnea, paroxysmal nocturnal dyspnea, edema, light headedness, other Gastrointestinal: negative: Nausea, Vomiting, Abdominal Pain, Diarrhea, Constipation, Melena, Hematochezia, Other Genitourinary: negative: Dysuria, Frequency, Incontinence, Hematuria, Retention , Other Musculoskeletal: negative: Neck Pain, Shoulder Pain, Arm Pain, Back Pain, Hand Pain, Leg Pain, Foot Pain, Other Skin: negative: Rash, Lesions, Chauncey, Bruising, Other - Medications/Allergies Allergies/Adverse Reactions: Allergies Allergy/AdvReac Type Severity Reaction Status Date / Time morphine Allergy Intermediate Emesis Verified 06/05/18 02:56 Penicillins Allergy Verified 06/05/18 02:56 Medications: Current Medications Acetaminophen (Tylenol) 650 mg PO Q4H PRN PRN Reason: Headache/Fever/Mild Pain (1-3) Albuterol Sulfate (Proventil Hfa) 2 puff INH Q4HR PRN PRN Reason: Wheezing Artificial Tears (Tears Renewed 15ml Bottle) 2 drop EA EYE PRN PRN PRN Reason: Dry Eyes Bisacodyl (Dulcolax) 10 mg PO DAILYPRN PRN PRN Reason: Constipation Bisacodyl (Dulcolax) 10 mg [place] DAILYPRN PRN PRN Reason: Constipation Cholecalciferol (Vitamin D3) 1,000 units PO DAILY [facility] Last Admin: 06/05/18 08:38 Dose: Not Given Clotrimazole (Mycelex Kimberlee) 10 mg PO QID PRN PRN Reason: Itching Famotidine (Pepcid) 20 mg PO DAILY [facility] Last Admin: 06/05/18 08:38 Dose: Not Given Fentanyl (Sublimaze) 25 mcg SLOW IVP Q2H PRN PRN Reason: Pain Last Admin: 06/05/18 22:19 Dose: 25 mcg Fentanyl (Pacu-Sublimaze) 50 mcg SLOW IVP Q10MIN PRN PRN Reason: Moderate to Severe Pain (6-10) Stop: 06/06/18 12:02 Guaifenesin (Robitussin Sf) 200 mg PO Q4H PRN PRN Reason: Cough HCTZ/Losartan Potassium (Hyzaar 50/12.5) 1 tab PO DAILY [facility] Last Admin: 06/05/18 12:05 Dose: 1 tab Hydralazine HCl (Apresoline) 10 mg SLOW IVP Q4H PRN PRN Reason: SBP > 180 and HR < 70 Sodium Chloride (Normal Saline 0.9%) 1,000 mls @ 75 mls/hr IV .[id number] [facility] Last Admin: 06/06/18 05:39 Dose: 1,000 mls Levofloxacin 500 mg/ Device 100 mls @ 100 mls/hr IVPB Q24HR@0800 [facility] Last Admin: 06/06/18 09:56 Dose: Not Given Ceftriaxone Sodium 1 gm/ (Sodium Chloride) 100 mls @ 200 mls/hr IVPB Q24HR [facility] Last Admin: 06/05/18 11:29 Dose: 100 mls Loperamide HCl (Imodium) 2 mg PO PRN PRN PRN Reason: Diarrhea/Loose Stools Loratadine (Claritin) 10 mg PO DAILYPRN PRN PRN Reason: Sinus Symptoms Mineral Oil/White Petrolatum (Eucerin Cream) 0 gm TOP BIDPRN PRN PRN Reason: Dry Skin Mirtazapine (Remeron) 15 mg PO HS [facility] Last Admin: 06/05/18 20:03 Dose: 15 mg Nifedipine (Procardia Xl) 60 mg PO DAILY [facility] Last Admin: 06/05/18 08:38 Dose: 60 mg Ondansetron HCl (Zofran Odt) 4 mg PO Q6H PRN PRN Reason: Nausea/Vomiting Ondansetron HCl (Zofran) 4 mg IVP Q6H PRN PRN Reason: Nausea/Vomiting Last Admin: 06/05/18 22:19 Dose: 4 mg Ondansetron HCl (Pacu-Zofran) 4 mg IVP ONE PRN PRN Reason: Nausea/Vomiting Stop: 06/06/18 12:02 Diclofenac Sodium [ Diclofenac Sodium 1% Gel] 2 Gm 0 each TOP QID PRN PRN Reason: Topical Anesthetic Promethazine HCl (Pacu-Phenergan) 6.25 mg SLOW IVP ONE PRN PRN Reason: Nausea/Vomiting Stop: 06/06/18 12:02 Promethazine HCl (Pacu-Phenergan) 6.25 mg IM ONE PRN PRN Reason: Nausea/Vomiting Stop: 06/06/18 12:02 Saccharomyces Boulardii (Florastor) 250 mg PO DAILY [facility] Last Admin: 06/05/18 08:39 Dose: Not Given Senna/Docusate Sodium (Senokot S) 2 tab PO BID PRN PRN Reason: Constipation Sodium Chloride ([place] Nasal [place] 0.65%) 0 ml EA NARE QIDPRN PRN PRN Reason: Nasal Congestion Tramadol HCl (Ultram) 50 mg PO TID PRN PRN Reason: Pain Last Admin: 06/05/18 20:06 Dose: 50 mg Zolpidem Tartrate (Ambien) 5 mg PO HSPRN PRN PRN Reason: Insomnia Last Admin: 06/05/18 20:03 Dose: 5 mg
[2018-06-06] MEDS: cefTRIAXone\\ROCEPHIN 1 GM in Sodium Chloride 0.9% 100 ML IVPB SCH (10:41)
[2018-06-06] MEDS: NIFEdipine XL 60 MG TAB PO SCH (10:42)
[2018-06-06] MEDS: Famotidine 20 MG TAB PO SCH (10:44)
[2018-06-06] MEDS: Saccharomyces boulardii 250 MG CAP PO SCH (10:44)
--- NOTE | 2018-06-06 11:46 | OP ---
DATE OF PROCEDURE: 06/06/2018 PREOPERATIVE DIAGNOSIS: Left ureteral stone. POSTOPERATIVE DIAGNOSIS: Left ureteral stone. PROCEDURE: Cystoscopy, left ureteroscopy, holmium laser lithotripsy, stone basketing, stent placement 6 x 24. SPECIMENS: Urine from the left renal pelvis and stone. COMPLICATIONS: None. DRAINS: Remaining 6 x 24 double J. INDICATIONS: The patient is an 83-year-old female, who was admitted with left renal colic and concern for infection, but no obvious signs of this. So, at this point, I asked Cardiology to see her and appreciate their input and she was cleared for intervention and we proceeded with this. The patient was brought into the room by Anesthesia, laid on the table in supine position. After receiving general anesthetic, her legs were placed in lithotomy position and her perineum was prepped and draped in sterile fashion with the left leg lowered and the right leg elevated. All pressure points were padded and then again she was prepped and draped in sterile fashion. A 21-[place] cystoscope was used to traverse the urethra. The bladder was inspected and found to be without lesions. The left ureteral orifice was identified and a Pollack catheter and wire were used to intubate this and easily pass the stone and up into the renal pelvis. The wire was removed. No significant hydronephrotic drip was noted, but there was hydronephrosis based on a retrograde pyelogram--which showed only two main calyces. Only 6-8 mL of clear/white (lack of yellow color) urine was retrieved and sent for culture. Measurements were taken for a stent at the end: 6 x 24 was chosen. Then, the Pollack catheter was removed leaving the wire in place and the ureteral orifice was dilated to 12-[place] with a 4 cm long balloon up to a maximum pressure of 12 mmHg. This was taken down leaving the wire in place and the scope removed in its entirety. The rigid ureteroscope was used to go to the level of stone where it was fragmented into 3 pieces, removed, and sent for specimen. The largest fragment was tight, but able to be removed and a final pass of the ureter showed no remaining stones. The cystoscope was back fed over the wire and then a 6 x 24 double-J was placed. Good coil was visualized in the renal pelvis via fluoroscopy and a good coil visualized in the bladder via cystoscopy. The scope was broken apart , bladder drained, and removed in its entirety leaving the string intact--which was then secured to the patient's inner thigh. The patient was awakened and transferred to PACU in stable condition. NABEEL
[2018-06-06] MEDS: Zolpidem Tartrate 5 MG TAB PO PRN (20:13)
[2018-06-06] MEDS: Mirtazapine 15 MG TAB PO SCH (20:13)
[2018-06-06] MEDS: traMADol HCl 50 MG TAB PO PRN (20:18)
[2018-06-07] MEDS: Famotidine 20 MG TAB PO SCH (08:14)
[2018-06-07] MEDS: Saccharomyces boulardii 250 MG CAP PO SCH (08:15)
[2018-06-07] MEDS: NIFEdipine XL 60 MG TAB PO SCH (08:15)
[2018-06-07 08:25] VITALS: BP 168/78; TEMP 98.1
--- NOTE | 2018-06-07 09:31 | PRG ---
DATE OF SERVICE: 06/07/2018 Patient did well since surgery. She has no complaints. She is voiding without difficulty. I am not sure why she stated having a couple episodes of borderline tachycardia, but she had no chest pain or concerns with it. Vitals have been stable. Last check her heart rate was 73 with blood pressure stable. In assessment, we have an 83-year-old female, status post left ureteroscopy with lithotripsy and ston e extraction with a stent indwelling currently. She is safe for discharge and to follow up in the of fice for stent removal and to discuss stone prevention further.
--- NOTE | 2018-06-07 09:40 | PDOC.PN ---
- Subjective Encounter Start Date: 06/07/18 Encounter Start Time: 07:40 Patient seen and examined. No new complaints. No overnight events - Objective Resuscitation Status: Resuscitation Status FULL:Full Resuscitation MAR Reviewed: Yes Vital Signs & Weight: Vital Signs (12 hours) Temp Pulse Resp BP BP Pulse Ox 06/07/18 08:15 73 123/71 06/07/18 08:00 98.1 F 76 16 168/78 H 95 06/07/18 04:00 98.0 F 73 16 132/71 96 06/07/18 00:00 97.9 F 97 16 137/63 95 Weight Weight 112 lb 7 oz I&O: 06/06/18 06/07/18 06/08/18 06:59 06:59 06:59 Intake Total 2843 2543 Balance 2843 2543 Result Diagrams: 06/06/18 03:14 06/06/18 03:14 Phys Exam - Physical Examination Constitutional: NAD HEENT: PERRLA, moist MMs, sclera anicteric Neck: no JVD, supple Respiratory: no wheezing, no rales, no rhonchi Cardiovascular: RRR, no significant murmur, no rub Gastrointestinal: soft, non-tender, no distention, positive bowel sounds Musculoskeletal: no edema, pulses present Neurological: non-focal, normal sensation, moves all 4 limbs Lymphatic: no nodes Psychiatric: normal affect, A&O x 3 Skin: no rash, normal turgor Dx/Plan (1) Left ureteral calculus Code(s): N20.1 - CALCULUS OF URETER Status: Acute Comment: s/p cysto and stone removal (2) UTI (urinary tract infection) Status: Acute (3) Anxiety and depression Code(s): F41.9 - ANXIETY DISORDER, UNSPECIFIED; F32.9 - MAJOR DEPRESSIVE DISORDER, SINGLE EPISODE, UNSPECIFIED Status: Chronic (4) GERD (gastroesophageal reflux disease) Code(s): K21.9 - GASTRO-ESOPHAGEAL REFLUX DISEASE WITHOUT ESOPHAGITIS Status: Chronic (5) Hyperlipidemia Code(s): E78.5 - HYPERLIPIDEMIA, UNSPECIFIED Status: Chronic (6) Hypertension Code(s): I10 - ESSENTIAL (PRIMARY) HYPERTENSION Status: Chronic (7) Osteoporosis Code(s): M81.0 - AGE-RELATED OSTEOPOROSIS W/O CURRENT PATHOLOGICAL FRACTURE Status: Chronic (8) Peripheral vascular disease of extremity Code(s): I73.9 - PERIPHERAL VASCULAR DISEASE, UNSPECIFIED Status: Chronic - Plan cont current plan of care, plan discussed w/ family, continue antibiotics * medication reviewed as below * symptomatic treatment * see my discharge stefanie. . Review of Systems - Review of Systems ENT: negative: Ear Pain, Ear Discharge, Nose Pain, Nose Discharge, Nose Congestion, Mouth Pain, Mouth Swelling, Throat Pain, Throat Swelling, Other Respiratory: negative: Cough, Dry, Shortness of Breath, Hemoptysis, SOB with Excertion, Pleuritic Pain, Sputum, Wheezing Cardiovascular: negative: chest pain, palpitations, orthopnea, paroxysmal nocturnal dyspnea, edema, light headedness, other Gastrointestinal: negative: Nausea, Vomiting, Abdominal Pain, Diarrhea, Constipation, Melena, Hematochezia, Other Genitourinary: negative: Dysuria, Frequency, Incontinence, Hematuria, Retention , Other Musculoskeletal: negative: Neck Pain, Shoulder Pain, Arm Pain, Back Pain, Hand Pain, Leg Pain, Foot Pain, Other Skin: negative: Rash, Lesions, Chauncey, Bruising, Other - Medications/Allergies Allergies/Adverse Reactions: Allergies Allergy/AdvReac Type Severity Reaction Status Date / Time morphine Allergy Intermediate Emesis Verified 06/05/18 02:56 Penicillins Allergy Verified 06/05/18 02:56 Medications: Current Medications Acetaminophen (Tylenol) 650 mg PO Q4H PRN PRN Reason: Headache/Fever/Mild Pain (1-3) Albuterol Sulfate (Proventil Hfa) 2 puff INH Q4HR PRN PRN Reason: Wheezing Artificial Tears (Tears Renewed 15ml Bottle) 2 drop EA EYE PRN PRN PRN Reason: Dry Eyes Bisacodyl (Dulcolax) 10 mg PO DAILYPRN PRN PRN Reason: Constipation Bisacodyl (Dulcolax) 10 mg [place] DAILYPRN PRN PRN Reason: Constipation Cholecalciferol (Vitamin D3) 1,000 units PO DAILY [facility] Last Admin: 06/07/18 08:15 Dose: 1,000 units Clotrimazole (Mycelex Kimberlee) 10 mg PO QID PRN PRN Reason: Itching Famotidine (Pepcid) 20 mg PO DAILY [facility] Last Admin: 06/07/18 08:14 Dose: 20 mg Fentanyl (Sublimaze) 25 mcg SLOW IVP Q2H PRN PRN Reason: Pain Last Admin: 06/05/18 22:19 Dose: 25 mcg Guaifenesin (Robitussin Sf) 200 mg PO Q4H PRN PRN Reason: Cough HCTZ/Losartan Potassium (Hyzaar 50/12.5) 1 tab PO DAILY [facility] Last Admin: 06/07/18 08:14 Dose: 1 tab Hydralazine HCl (Apresoline) 10 mg SLOW IVP Q4H PRN PRN Reason: SBP > 180 and HR < 70 Sodium Chloride (Normal Saline 0.9%) 1,000 mls @ 75 mls/hr IV .[id number] [facility] Last Admin: 06/06/18 23:15 Dose: 1,000 mls Levofloxacin 500 mg/ Device 100 mls @ 100 mls/hr IVPB Q24HR@0800 [facility] Last Admin: 06/06/18 09:56 Dose: Not Given Ceftriaxone Sodium 1 gm/ (Sodium Chloride) 100 mls @ 200 mls/hr IVPB Q24HR [facility] Last Admin: 06/06/18 10:41 Dose: 100 mls Loperamide HCl (Imodium) 2 mg PO PRN PRN PRN Reason: Diarrhea/Loose Stools Loratadine (Claritin) 10 mg PO DAILYPRN PRN PRN Reason: Sinus Symptoms Mineral Oil/White Petrolatum (Eucerin Cream) 0 gm TOP BIDPRN PRN PRN Reason: Dry Skin Mirtazapine (Remeron) 15 mg PO HS [facility] Last Admin: 06/06/18 20:13 Dose: 15 mg Nifedipine (Procardia Xl) 60 mg PO DAILY [facility] Last Admin: 06/07/18 08:15 Dose: 60 mg Ondansetron HCl (Zofran Odt) 4 mg PO Q6H PRN PRN Reason: Nausea/Vomiting Ondansetron HCl (Zofran) 4 mg IVP Q6H PRN PRN Reason: Nausea/Vomiting Last Admin: 06/05/18 22:19 Dose: 4 mg Diclofenac Sodium [ Diclofenac Sodium 1% Gel] 2 Gm 0 each TOP QID PRN PRN Reason: Topical Anesthetic Saccharomyces Boulardii (Florastor) 250 mg PO DAILY [facility] Last Admin: 06/07/18 08:15 Dose: 250 mg Senna/Docusate Sodium (Senokot S) 2 tab PO BID PRN PRN Reason: Constipation Last Admin: 06/06/18 20:24 Dose: 2 tab Sodium Chloride ([place] Nasal [place] 0.65%) 0 ml EA NARE QIDPRN PRN PRN Reason: Nasal Congestion Tramadol HCl (Ultram) 50 mg PO TID PRN PRN Reason: Pain Last Admin: 06/06/18 20:18 Dose: 50 mg Zolpidem Tartrate (Ambien) 5 mg PO HSPRN PRN PRN Reason: Insomnia Last Admin: 06/06/18 20:13 Dose: 5 mg
--- NOTE | 2018-06-07 10:59 | DIS ---
DATE OF ADMISSION: 06/04/2018 DATE OF DISCHARGE: 06/07/2018 PRIMARY CARE PHYSICIAN: Ovi Flynn M.D. DISCHARGE DISPOSITION: Home. PRIMARY DISCHARGE DIAGNOSES: 1. Urinary tract infection, complicated. 2. Left ureteral calculus, status post cystoscopy and stone removal. SECONDARY DISCHARGE DIAGNOSES: Varicose vein, osteoporosis, hypertension, dyslipidemia, gastroesopha geal reflux disease, bilateral nonobstructing nephrolithiasis, anxiety and depression. PRIMARY PROCEDURE/OPERATION: Dr. Kofi Art did cystoscopy and stone was removed. Patient had lef t ureteroscopy and basket extraction of stone and stent placement. RADIOLOGICAL INVESTIGATION: Abdomen and pelvis CT scan showed left ureteral calculi, bilateral nephr olithiasis. SIGNIFICANT LABORATORY DATA: WBC 7.7, hemoglobin 12.4, platelet 195. Sodium 135, creatinine 0.83. LFT normal. Cardiac enzymes negative. BNP 97.8. Urinalysis suggestive of UTI. Urine culture negat sander. DISCHARGE MEDICATIONS: The patient will continue Cipro 250 mg p.o. b.i.d. for 3 more days, Flomax 0. 4 mg p.o. daily, tramadol 50 mg t.i.d. p.r.n., Ambien 5 mg p.o. at bedtime p.r.n., risedronate 35 mg every week, Procardia-XL 60 mg daily, Remeron 15 mg p.o. at bedtime, losartan with hydrochlorothiazid e 50/12.5 one tablet p.o. daily, Nexium 40 mg p.o. daily, diclofenac topical application as directed, vitamin D3 1000 units p.o. daily, ProAir HFA 2 puffs q.4 hourly p.r.n. CONTRAINDICATIONS: None. CODE STATUS: FULL CODE. INPATIENT CONSULTANTS: Dr. Kofi Art was consulted while in hospital. Dr. Booker saw this liana ent for preoperative clearance. ALLERGIES: MORPHINE, PENICILLIN. TEST RESULTS PENDING ON DISCHARGE: Tone pathology report. DISCHARGE PLAN: Post hospital, patient will follow up with Dr. Kofi Art and primary care ronaldi an. HOSPITAL COURSE: An 83-year-old female who was admitted by me. Please see my HPI for further detail s. Patient was having acute onset of flank pain. She was also having urinary tract infection sympto ms. Patient was admitted to medical floor for left ureteral calculus and associated UTI. Urology wa s consulted and they did cystoscopy, ureteroscopy and basket extraction of stone and stent was placed . Cardiology cleared her for operation. Patient's culture remained negative as patient was already on prior antibiotic therapy before admissi on and that is why we continued with Cipro for another 3 days. Flomax was also prescribed. Urology cleared her for discharge. The patient is seen and examined at bedside today. Please see my progress note from today for furthe r detail. Plan of care discussed with the family member, patient is medically stable for discharge t [facility].
--- NOTE | 2018-06-07 16:59 | EKG ---
Test Reason : Blood Pressure : / mmHG Vent. Rate : 077 BPM Atrial Rate : 077 BPM P-R Int : 124 ms QRS Dur : 118 ms QT Int : 418 ms P-R-T Axes : 044 -14 003 degrees QTc Int : 473 ms Normal sinus rhythm Right bundle branch block Minimal voltage criteria for LVH, may be normal variant Abnormal ECG When compared with ECG of 15-APR-2018 14:24, ST no longer depressed in Anterior leads Confirmed by DR. Wong HARRIS ([id number]) on 06/07/2018 4:58:31 PM Referred By: CYNTHIA Confirmed By:DR. Wong HARRIS
[2018-06-10 09:21] LABS: CA Oxalate Dihydrate 20 % (.); CA Oxalate Monohydrate 55 % (.); CA Phosphate 25 % (.); Color Brown (.)
== END 2018-06-07 10:39 | disposition home or self-care (01) | DRG 660 ==
LOC: ERS 20:24 → OBSVTOIN 23:51 → ERHOLD 23:51 → T4-B 06-05 02:18
PROVIDERS: ADMIT Internal Medicine; ATTEND Internal Medicine
PROC: 0T778DZ Dilation of Left Ureter with Intraluminal Device, Via Natural or Artificial Opening Endoscopic (ICD-10-PCS; principal; 2018-06-06)
PROC: 0TC78ZZ Extirpation of Matter from Left Ureter, Via Natural or Artificial Opening Endoscopic (ICD-10-PCS; 2018-06-06)
PROC: BT1F1ZZ Fluoroscopy of Left Kidney, Ureter and Bladder using Low Osmolar Contrast (ICD-10-PCS; 2018-06-06)
DX: N20.2 Calculus of kidney with calculus of ureter (principal); N39.0 Urinary tract infection, site not specified; I10 Essential (primary) hypertension; K21.9 Gastro-esophageal reflux disease without esophagitis; M81.0 Age-related osteoporosis without current pathological fracture; E78.5 Hyperlipidemia, unspecified; I73.9 Peripheral vascular disease, unspecified; F41.9 Anxiety disorder, unspecified; F32.9 Major depressive disorder, single episode, unspecified; Z88.5 Allergy status to narcotic agent; Z88.0 Allergy status to penicillin; Z87.891 Personal history of nicotine dependence; Z87.442 Personal history of urinary calculi; Z86.718 Personal history of other venous thrombosis and embolism; Z90.49 Acquired absence of other specified parts of digestive tract; Z82.49 Family history of ischemic heart disease and other diseases of the circulatory system
CPT/HCPCS: 36415; 71046; 74177; 74420; 76000; 80048; 80053; 81003; 81015; 82365; 82553; 83880; 84484; 85025; 87070; 87086; 87205; 88300; 93005; 93010; 96361; 96365; 96366; 96375; J0696; J1100; J1956; J2001; J2405; J2704; J3010; J7050; Q9961

== ENCOUNTER 2018-06-09 11:27 | Emergency (ER) | payer MEDICARE, MEDICAID ==
[2018-06-09] MEDS ORDERED: Sodium Bicarb 50 MEQ/50 ML Abboject 8.4% SYRINGE ONE (11:35)
[2018-06-09 12:07] LABS: Bilirubin Negative (Negative); Blood, Urine Large (Negative); Clarity CLOUDY (Clear); Glucose, Urine (Dipstick) Negative (Negative); Leukocyte Moderate (Negative); Nitrite Negative (Negative); Protein, Urine (Dipstick) 30 mg/dL (Neg-Trace); Specific Gravity, Urine 1.013 (1.002-1.036); Urobilinogen 0.2 mg/dL (0.2-1.0); pH, Urine 6.5 (5.0-9.0)
[2018-06-09 12:12] LABS: Bacteria/HPF None Seen HPF (None Seen); Hyaline Casts/LPF 0-3 HYALINE CAST LPF (0-3 Hyaline); Pathc Cast-AUWi Flag 0.72 (0-2.49); RBC/HPF GREATER THAN 50-TNTC HPF (0-3); WBC/HPF 21-50 HPF (0-3)
[2018-06-09 12:55] LABS: #Eosinphils 0.1 thou/uL (0.0-0.7); #Lymphocytes 1.3 thou/uL (1.20-3.40); #Monocytes 0.5 thou/uL (0.11-0.59); #Neutrophils 4.1 thou/uL (1.40-6.50); %Basophils 0.6 % (0.0-1.0); %Eosinophils 2.4 % (0.0-10.0); %Lymphocytes 21.3 % (21.0-51.0); %Monocytes 7.6 % (0.0-10.0); %Neutrophils 68.2 % (42.0-75.0); Hemoglobin 14.2 g/dL (12.0-16.0); Mean Corpuscular HGB CONC 32.4 g/dL (32.0-36.0); Mean Corpuscular Hemoglobin 28.8 pg (27.0-31.0); Mean Platelet Volume 7.5 fL (7.4-10.4); Platelet Count 214 thou/uL (130-400); RBC Distribution Width 12.4 % (11.5-14.5); Red Blood Cell (RBC) Count 4.93 mill/uL (4.20-5.40)
[2018-06-09 13:19] LABS: ALT (SGPT) 59 U/L (8-55); AST (SGOT) 35 U/L (5-34); Albumin 4.2 g/dL (3.4-4.8); Alkaline Phosphatase 92 U/L (40-150); Anion Gap 11 mmol/L (10-20); BUN (Urea Nitrogen) 16 mg/dL (9.8-20.1); Bilirubin, Total 0.5 mg/dL (0.2-1.2); Calc. Creatinine Clearance 0 mL/min (70-130); Calcium 10.9 mg/dL (7.8-10.44); Carbon Dioxide 29 mmol/L (23-31); Chloride 105 mmol/L (98-107); Estimated GFR-MDRD 48; Globulin 3.2 g/dL (2.4-3.5); Glucose 105 mg/dL (83-110); Potassium 3.7 mmol/L (3.5-5.1); Protein, Total 7.4 g/dL (6.0-8.3); Sodium 141 mmol/L (136-145)
== END 2018-06-09 15:19 | disposition home or self-care (01) ==
LOC: ERS 11:27
DX: R39.11 Hesitancy of micturition (principal); I10 Essential (primary) hypertension
CPT/HCPCS: 51798; 80053; 81003; 81015; 85025; 96360

== ENCOUNTER 2018-11-11 08:48 | Outpatient (CLI) | payer MEDICARE, MEDICAID ==
--- NOTE | 2018-11-11 10:03 | ULT ---
BILATERAL RENAL ULTRASOUND: Date: 11/11/18 COMPARISON: CT abdomen/pelvis dated 06/04/18. HISTORY: Left ureteral stone. TECHNIQUE: Multiplanar Garcia scale and color Doppler images were obtained in a renal ultrasound. FINDINGS: The kidneys are normal in echogenicity without evidence of hydronephrosis. There are echogenic foci i n both kidneys which may represent nonobstructing renal calcifications. None of these foci demonstrat e significant shadowing and this could also be artifactual. There is a cyst in the lower pole of the left kidney measuring 3.5 cm in greatest dimension. Limited visualization of the urinary bladder is unremarkable. IMPRESSION: 1. No evidence of hydronephrosis. 2. Left renal cyst. POS: [facility]
== END 2018-11-11 08:49 | disposition home or self-care (01) ==
LOC: BICULT 08:48
PROVIDERS: ATTEND Urology
DX: N20.1 Calculus of ureter (principal); N28.1 Cyst of kidney, acquired
CPT/HCPCS: 76770

== ENCOUNTER 2021-03-06 08:12 | Outpatient (CLI) | payer MEDICARE, MEDICAID | END 2021-03-06 08:13 | disposition home or self-care (01) | LOC: BICCT 08:12 | PROVIDERS: ATTEND Internal Medicine Nephrology | DX: N18.30 Chronic kidney disease, stage 3 unspecified (principal); N20.0 Calculus of kidney; K76.89 Other specified diseases of liver; N28.1 Cyst of kidney, acquired; Z90.49 Acquired absence of other specified parts of digestive tract; Z87.442 Personal history of urinary calculi | CPT/HCPCS: 74176 ==

== ENCOUNTER 2021-08-18 11:50 | Emergency (ER) | payer MEDICARE, MEDICAID, OTHER ==
[~2021-08-18 11:50] MED LIST changes: -ISOVUE-370 76%-LOCM 1 ML ONE; +Iopamidol-370 76% 500 ML 1 ML ONE
[2021-08-18] MEDS ORDERED: Fentanyl 100 MCG/2 ML VIAL ONE (12:33)
[2021-08-18 12:55] LABS: #Lymphocytes 0.9 thou/uL (1.20-3.40); #Monocytes 0.5 thou/uL (0.11-0.59); #Neutrophils 6.4 thou/uL (1.40-6.50); %Basophils 0.5 % (0.0-1.0); %Eosinophils 0.3 % (0.0-10.0); %Lymphocytes 11.1 % (21.0-51.0); %Monocytes 6.7 % (0.0-10.0); %Neutrophils 81.4 % (42.0-75.0); Hemoglobin 13.7 g/dL (12.0-16.0); Mean Corpuscular HGB CONC 32.9 g/dL (32.0-36.0); Mean Corpuscular Hemoglobin 29.1 pg (27.0-31.0); Mean Corpuscular Volume 88.5 fL (78.0-98.0); Platelet Count 186 thou/uL (130-400); RBC Distribution Width 11.6 % (11.5-14.5); Red Blood Cell (RBC) Count 4.71 mill/uL (4.20-5.40); White Blood Cell (WBC) Count 7.8 thou/uL (4.8-10.8)
[2021-08-18 13:17] LABS: ALT (SGPT) 13 U/L (8-55); AST (SGOT) 18 U/L (5-34); Albumin 3.9 g/dL (3.4-4.8); Alkaline Phosphatase 59 U/L (40-110); Anion Gap 13 mmol/L (10-20); BUN (Urea Nitrogen) 15 mg/dL (9.8-20.1); Bilirubin, Total 0.6 mg/dL (0.2-1.2); Calc. Creatinine Clearance 0 mL/min (70-130); Calcium 10.1 mg/dL (7.8-10.44); Carbon Dioxide 27 mmol/L (23-31); Chloride 104 mmol/L (98-107); Globulin 3.1 g/dL (2.4-3.5); Glucose 100 mg/dL (83-110); Potassium 3.5 mmol/L (3.5-5.1); Sodium 140 mmol/L (136-145)
[2021-08-18] MEDS ORDERED: HYDROcodone/Acetaminophen 10/325 mg Tablet ONE (14:23)
[2021-08-18] MEDS ORDERED: Ketorolac Tromethamine 30 MG/ML VIAL ONE (14:29)
== END 2021-08-18 15:04 | disposition home or self-care (01) ==
LOC: ERS 11:50
DX: S20.219A Contusion of unspecified front wall of thorax, initial encounter (principal); E78.5 Hyperlipidemia, unspecified; E78.00 Pure hypercholesterolemia, unspecified; I10 Essential (primary) hypertension; Z87.891 Personal history of nicotine dependence; W06.XXXA Fall from bed, initial encounter
CPT/HCPCS: 36415; 71260; 74177; 80053; 85025; 96374; 96375; J1885; J3010; Q9967

== ENCOUNTER 2024-02-03 14:32 | Emergency (ER) | payer OTHER ==
[2024-02-03] MEDS ORDERED: Lidocaine 2% Viscous 10 mL, Alum & Magn 30 mL SSW SCH (16:00)
[2024-02-03 16:12] LABS: #Basophils Less than 0.03 10x3/uL (0.0-0.2); %Basophils 0.1 % (0.0-1.0); %Eosinophils 0.2 % (0.0-10.0); %Lymphocytes 4.4 % (21.0-51.0); %Monocytes 4.3 % (0.0-10.0); %Neutrophils 90.4 % (42.0-75.0); Hematocrit 44.3 % (36.0-47.0); Hemoglobin 14.6 g/dL (12.0-16.0); Mean Corpuscular Hemoglobin 28.8 pg (27.0-31.0); Mean Corpuscular Volume 87.4 fL (78.0-98.0); Mean Platelet Volume 9.8 fL (7.4-10.4); Platelet Count 228 10x3/uL (130-400); RBC Distribution Width 13.2 % (11.5-14.5); Red Blood Cell (RBC) Count 5.07 mill/uL (4.20-5.40)
[2024-02-03] MEDS ORDERED: Sucralfate 1 GM/10 ML UDCUP ONE (16:19)
[2024-02-03] MEDS ORDERED: Pantoprazole DR 40 MG TAB ONE (16:19)
[2024-02-03 16:25] LABS: ALT (SGPT) 17 U/L (8-55); AST (SGOT) 24 U/L (5-34); Albumin 4.1 g/dL (3.4-4.8); Alkaline Phosphatase 59 U/L (40-110); Anion Gap 14 mmol/L (10-20); BUN (Urea Nitrogen) 22 mg/dL (9.8-20.1); Bilirubin, Total 0.3 mg/dL (0.2-1.2); Calc. Creatinine Clearance 0 mL/min (70-130); Calcium 10.9 mg/dL (7.8-10.44); Carbon Dioxide 24 mmol/L (23-31); Chloride 107 mmol/L (98-107); Estimated GFR 45; Globulin 3.3 g/dL (2.4-3.5); Glucose 126 mg/dL (83-110); Lipase 59 U/L (8-78); Magnesium 2.1 mg/dL (1.6-2.6); Potassium 4.4 mmol/L (3.5-5.1); Protein, Total 7.4 g/dL (5.8-8.1); Sodium 141 mmol/L (136-145)
[2024-02-03 16:31] LABS: Troponin I Less than 0.010 ng/mL (< 0.028)
[2024-02-03 17:21] LABS: Bacteria/HPF None Seen HPF (None Seen); Bilirubin Negative (Negative); Blood, Urine Trace (Negative); CAUTI Indications for Culture Dysuria,urgency,freq; Clarity Clear (Clear); Glucose, Urine (Dipstick) Normal (Negative); Ketone, Urine Negative (Negative); Leukocyte Negative Leu/uL (Negative); Nitrite Negative (Negative); Protein, Urine (Dipstick) Negative (Neg-Trace); Specific Gravity, Urine 1.011 (1.002-1.036); Squamous Epithelial 0-3 HPF (0-3); Urobilinogen Normal mg/dL (Less than 2); WBC/HPF 0-3 HPF (0-3)
[2024-02-03 17:23] LABS: Urine Culture Reflex No No
== END 2024-02-03 19:45 | disposition home or self-care (01) ==
LOC: ERS 14:32
DX: L27.0 Generalized skin eruption due to drugs and medicaments taken internally (principal); T36.95XA Adverse effect of unspecified systemic antibiotic, initial encounter; I10 Essential (primary) hypertension; Z87.891 Personal history of nicotine dependence
CPT/HCPCS: 71045; 80053; 81001; 83690; 83735; 84484; 85025; 93005